=== PATIENT | female | born 1970 | race Caucasian/White ===

== ENCOUNTER 2025-04-28 21:36 | Emergency (ER) | payer SELFPAY ==
[~2025-04-28] VITALS: Ht 165.1 cm; Wt 61.0 kg
[2025-04-28 21:39] VITALS: O2SAT 98
[2025-04-28 22:34] VITALS: TEMP 36.9
[2025-04-28 23:20] LABS: HEMATOCRIT. 27.3 % (36.0-48.0); HEMOGLOBIN. 9.0 g/dL (12.0-16.0); MEAN PLATELET VOLUME 8.7 fl (7.4-10.4); PLATELET 161 x1000/uL (130-400); RED BLOOD CELL COUNT 3.28 mill/uL (4.2-5.4); RED CELL DISTRIBUTION WIDTH 15.3 % (11.6-14.6)
[2025-04-28 23:32] LABS: INR 1.1
[2025-04-28 23:35] LABS: CREATININE 0.5 mg/dL (0.6-1.0); UREA NITROGEN BLOOD 14 mg/dL (9-23)
[2025-04-29 00:25] VITALS: BP 96/62; PULSE 95; RESP 16; O2SAT 97
[2025-04-29 05:47] LABS: LYMPHOCYTES % MANUAL 10.0 % (20.0-60.0); MONOCYTES % MANUAL 5.0 % (2.0-8.0); NEUTROPHILS % MANUAL 85.0 % (45.0-75.0); PLATELET ESTIMATE NORMAL
[2025-05-06] MEDS ORDERED: FOLI20CA PO (09:59)
[2025-05-06] MEDS ORDERED: METF-1150 PO (10:06)
[2025-05-06] MEDS ORDERED: CALC-940 PO (10:06)
[2025-05-06] MEDS ORDERED: LOPE2CAP PO (10:06)
[2025-05-06] MEDS ORDERED: TOPUD MT (10:06)
[2025-05-06] MEDS ORDERED: TRAM100C3 PO (10:06)
[2025-05-06] MEDS ORDERED: PREG100C PO (10:06)
[2025-05-06] MEDS ORDERED: ONDA-241 PO (10:06)
[2025-05-06] MEDS ORDERED: MIDO5TAB4 PO (17:18)
[2025-05-06] MEDS ORDERED: AMOX1TAB15 PO (17:18)
== END 2025-04-29 00:44 | disposition home or self-care (01) ==
LOC: ER 21:36
DX: M79.81 Nontraumatic hematoma of soft tissue (principal); D64.9 Anemia, unspecified; E11.9 Type 2 diabetes mellitus without complications; F19.90 Other psychoactive substance use, unspecified, uncomplicated; Z79.899 Other long term (current) drug therapy; Z98.890 Other specified postprocedural states
CPT/HCPCS: 36415; 80048; 85025; 86850; 86900; 99284

== ENCOUNTER 2025-06-08 11:37 | Inpatient (IN) | payer MEDICAID ==
[~2025-06-08] VITALS: Ht 154.9 cm; Wt 63.5 kg
[~2025-06-08 11:37] MED LIST: AMOX1TAB15 PO; CALC-940 PO; FOLI20CA PO; LOPE2CAP PO; METF-1150 PO; MIDO5TAB4 PO; ONDA-241 PO; PREG100C PO; TOPUD MT; TRAM100C3 PO
[2025-06-08 11:38] VITALS: O2SAT 96
[2025-06-08] MEDS: LEVETIRACETAM 500MG PREMIX 100 ML IV ONE ×2 (12:00→13:00)
[2025-06-08] MEDS: LORAZEPAM 2MG/ML UD SYRINGE IV NR (13:01)
[2025-06-08 13:27] LABS: BASOPHILS % 0.3 % (0.0-2.0); EOSINOPHILS % 0.1 % (0.0-5.0); HEMATOCRIT. 22.1 % (36.0-48.0); LYMPHOCYTES % 10.9 % (20.0-50.0); MEAN PLATELET VOLUME 9.1 fl (7.4-10.4); MONOCYTES % 11.6 % (2.0-8.0); NEUTROPHILS % 77.1 % (40.0-76.0); PLATELET 55 x1000/uL (130-400); RED BLOOD CELL COUNT 2.28 mill/uL (4.2-5.4); RED CELL DISTRIBUTION WIDTH 18.0 % (11.6-14.6)
[2025-06-08 13:34] LABS: CREATININE 0.5 mg/dL (0.6-1.0); UREA NITROGEN BLOOD 11 mg/dL (9-23)
[2025-06-08] MEDS: SODIUM CHLORIDE 0.9% (SEPSIS BOLUS) IV ONE (13:34)
[2025-06-08 13:36] LABS: ASPARTATE AMINOTRANSFERASE 16 IU/L (<34); BILIRUBIN TOTAL 0.6 mg/dL (0.1-1.0); PROTEIN TOTAL 5.9 g/dL (6.0-8.3)
[2025-06-08 13:50] LABS: TROPONIN I HIGH SENSITIVITY 4 ng/L (3.0-34)
[2025-06-08 13:51] LABS: HEMOGLOBIN. 6.6 g/dL (12.0-16.0)
[2025-06-08] MEDS: PIPERACILLIN/TAZO 3.375G/50ML 50 ML IV STA (14:35)
[2025-06-08] MEDS: VANCOMYCIN 1.5GM PMX (XELLIA) 300 ML IV SCH (16:07)
[2025-06-08] MEDS ORDERED: DEXTROSE 50% WATER 50ML SYRINGE IV PRN (17:45)
[2025-06-08] MEDS ORDERED: ACETAMINOPHEN 325MG TABLET PO PRN (18:00)
[2025-06-08] MEDS ORDERED: MIDODRINE HCL 5MG TABLET PO PRN (18:00)
[2025-06-08] MEDS ORDERED: GUAIFENESIN 200MG/10ML SUGAR FREE UDC PO PRN (18:00)
[2025-06-08] MEDS ORDERED: CLONIDINE 0.1MG TABLET PO PRN (18:00)
[2025-06-08] MEDS ORDERED: MAGNESIUM/ALUMINUM HYDROXIDE/SIMETHICONE 30ML UDC PO PRN (18:00)
[2025-06-08] MEDS ORDERED: DOCUSATE SODIUM 100MG CAPSULE PO PRN (18:00)
[2025-06-08] MEDS ORDERED: IPRATROPIUM/ALBUTEROL 0.5-3(2.5)MG/3ML NEB HHN PRN (18:00)
[2025-06-08] MEDS: INSULIN LISPRO 100 UNITS/ML SUBCUT SCH (18:20)
[2025-06-08] MEDS ORDERED: LORAZEPAM 2MG/ML UD SYRINGE IV PRN (18:30)
[2025-06-08] MEDS: MORPHINE SULFATE 2 MG/ML INJ (NOT FOR IM USE) IV PRN (18:38)
[2025-06-08] MEDS: ONDANSETRON HCL 4MG/2ML INJ IV PRN (18:38)
[2025-06-08 19:08] LABS: PHOSPHORUS 2.4 mg/dL (2.5-4.9)
[2025-06-08] MEDS: DEXT 5%/LACTATED RINGERS 1,000 ML IV SCH (19:08)
[2025-06-08] MEDS ORDERED: LEVETIRACETAM 1,000MG in NACL 100ML PREMIX IV SCH (21:00)
[2025-06-08] MEDS: BLOOD SUGAR DIAGNOSTIC STRIP TEST SCH (21:00)
[2025-06-08] MEDS: ACETAMINOPHEN 325MG TABLET PO PRN (21:10)
[2025-06-08 21:44] LABS: CLARITY URINE CLEAR (CLEAR); COLOR URINE YELLOW (YELLOW); GLUCOSE URINE NEGATIVE (NEGATIVE); KETONES URINE 2+ (NEGATIVE); LEUKOCYTE ESTERASE URINE NEGATIVE (NEGATIVE); NITRITE URINE NEGATIVE (NEGATIVE); OCCULT BLOOD URINE NEGATIVE (NEGATIVE); PH URINE 6.0 (4.5-8.0); PROTEIN URINE TRACE (NEGATIVE); SPECIFIC GRAVITY URINE 1.012 (1.005-1.030); UROBILINOGEN URINE 0.2 E.U./dL (0.2-1.0)
[2025-06-08 21:54] LABS: *AMPHETAMINES SCREEN URINE NEGATIVE (NEGATIVE); *BENZODIAZEPINES SCREEN URINE NEGATIVE (NEGATIVE)
[2025-06-08 21:55] LABS: *BARBITURATES SCREEN URINE NEGATIVE (NEGATIVE); *COCAINE SCREEN URINE NEGATIVE (NEGATIVE); CANNABINOID URINE SCREEN NEGATIVE (NEGATIVE); ECSTASY MDMA SCREEN URINE NEGATIVE (NEGATIVE); METHADONE URINE SCREEN NEGATIVE (NEGATIVE); OPIATES URINE SCREEN PRESUMPTIVE POSITIVE (NEGATIVE); PHENCYCLIDINE URINE SCREEN NEGATIVE (NEGATIVE)
[2025-06-08 22:48] LABS: BACTERIA URINE TRACE; RBC URINE 0-2 /hpf (0-2); SQUAMOUS EPITHELIAL CELL URINE FEW /lpf (RARE/1+); WBC URINE 0-2 /hpf (0-2)
[2025-06-08 23:54] LABS: CREATINE KINASE MB FRACTION < 0.5 ng/mL (0.5-3.6); TROPONIN I HIGH SENSITIVITY 7 ng/L (3.0-34)
[2025-06-08] MEDS: LEVETIRACETAM 1000MG PREMIX 100 ML IV SCH (23:57)
[2025-06-08] MEDS: PIPERACILLIN/TAZO 3.375G/50ML 50 ML IV SCH (23:58)
[2025-06-09] VITALS (9 sets, daily range): BP systolic 96–124; BP diastolic 54–63; PULSE 106–113; RESP 18–20; TEMP 36.44736–37.7; O2SAT 97–100
[2025-06-09] MEDS: VANCOMYCIN 750MG PREMIX 150 ML IV SCH (00:53)
[2025-06-09] MEDS ORDERED: OLAN5TAB39 PO (06:01)
[2025-06-09] MEDS ORDERED: ATOR20TA65 PO (06:01)
[2025-06-09] MEDS ORDERED: MIRT-89 PO (06:01)
[2025-06-09] MEDS ORDERED: FOLI0.4T6 PO (06:01)
[2025-06-09 10:18] LABS: BG BASE EXCESS -7.0 mmol/L (-2.0-3.0); BG CARBOXYHEMOGLOBIN 1.7 % (0.5-1.5); BG DEOXYHEMOGLOBIN 2.9 % (0.0-5.0); BG FRACTION INSPIRED OXYGEN 21; BG HCO3 ACT 16.7 mmol/L (21.0-28.0); BG METHEMOGLOBIN 0.2 % (0.5-1.5); BG OXYGEN SATURATION 97.0 % (94.0-98.0); BG OXYHEMOGLOBIN 95.2 % (94.0-98.0); BG PCO2 26.9 mmHg (32.0-45.0); BG PH 7.412 (7.350-7.450); BG PO2 89.5 mmHg (83.0-108.0); BG SAMPLE SITE RIGHT RADIAL; BG TOTAL HEMOGLOBIN 7.4 g/dL (12.0-16.0); BG VENT MODE ROOM AIR
[2025-06-09] MEDS: PANTOPRAZOLE SODIUM 40 MG/VIAL IV SCH (11:00)
[2025-06-09] MEDS: VANCOMYCIN 750MG PMX (XELLIA) 150 ML IV SCH (11:01)
[2025-06-09] MEDS: HYDROCODONE/ACETAMINOPHEN 5/325MG TABLET PO PRN (11:09)
[2025-06-09] MEDS: MULTIVITAMINS,THER W-MINERALS TABLET PO SCH (11:10)
[2025-06-09] MEDS: FERROUS SULFATE 325MG TABLET PO SCH (11:10)
[2025-06-09 11:50] LABS: BASOPHILS % 0.3 % (0.0-2.0); EOSINOPHILS % 0.1 % (0.0-5.0); LYMPHOCYTES % 7.6 % (20.0-50.0); MEAN PLATELET VOLUME 8.9 fl (7.4-10.4); MONOCYTES % 12.2 % (2.0-8.0); NEUTROPHILS % 79.8 % (40.0-76.0); RED BLOOD CELL COUNT 2.41 mill/uL (4.2-5.4); RED CELL DISTRIBUTION WIDTH 16.1 % (11.6-14.6)
[2025-06-09 11:57] LABS: CREATINE KINASE MB FRACTION < 0.5 ng/mL (0.5-3.6); CREATININE 0.5 mg/dL (0.6-1.0); TRIGLYCERIDE 218 mg/dL (0-150); UREA NITROGEN BLOOD 8 mg/dL (9-23)
[2025-06-09 11:58] LABS: LDL CHOLESTEROL 32 mg/dL (5-100); TROPONIN I HIGH SENSITIVITY 5 ng/L (3.0-34)
[2025-06-09 11:59] LABS: ASPARTATE AMINOTRANSFERASE 9 IU/L (<34); BILIRUBIN DIRECT 0.2 mg/dL (<=3.0); BILIRUBIN TOTAL 0.6 mg/dL (0.1-1.0); PROTEIN TOTAL 5.4 g/dL (6.0-8.3)
[2025-06-09 12:01] LABS: HEMATOCRIT. 21.2 % (36.0-48.0); HEMOGLOBIN. 6.9 g/dL (12.0-16.0); T4 FREE 1.00 ng/dL (0.89-1.76)
[2025-06-09] MEDS: MAGNESIUM 4 G PREMIX 100 ML IV NR (17:40)
[2025-06-09] MEDS: POTASSIUM CHLORIDE 40 MEQ in SODIUM CHLORIDE 0.45% 1,000 ML IV SCH (21:28)
[2025-06-10] VITALS: BP 100/58; PULSE 78; RESP 18; TEMP 36.6; O2SAT 97
[2025-06-10 04:00] VITALS: BP 104/65; PULSE 104; RESP 18; TEMP 35.9; O2SAT 97
[2025-06-10 08:00] VITALS: BP 121/63; PULSE 100; RESP 15; TEMP 36.3; O2SAT 96
[2025-06-10 08:58] LABS: PLATELET 55 x1000/uL (130-400); RED BLOOD CELL COUNT 3.09 mill/uL (4.2-5.4); RED CELL DISTRIBUTION WIDTH 15.7 % (11.6-14.6)
[2025-06-10 09:16] LABS: CREATININE 0.4 mg/dL (0.6-1.0); UREA NITROGEN BLOOD 5 mg/dL (9-23)
[2025-06-10 09:18] LABS: PHOSPHORUS 1.4 mg/dL (2.5-4.9)
[2025-06-10 20:19] LABS: PLATELET 50 x1000/uL (130-400)
== END 2025-06-10 11:00 | disposition home or self-care (01) | DRG 41 ==
LOC: ER 11:37 → EDBEDREQTM 16:04 → EDBEDREQ 16:04 → ENRESERV 16:16 → 7WST 21:59
PROVIDERS: ADMIT Internal Medicine; ATTEND Internal Medicine
PROC: 30233N1 Transfusion of Nonautologous Red Blood Cells into Peripheral Vein, Percutaneous Approach (ICD-10-PCS; principal; 2025-06-08)
DX: C79.31 Secondary malignant neoplasm of brain (principal); D61.818 Other pancytopenia; C78.02 Secondary malignant neoplasm of left lung; C78.01 Secondary malignant neoplasm of right lung; J18.9 Pneumonia, unspecified organism; G40.901 Epilepsy, unspecified, not intractable, with status epilepticus; G96.00 Cerebrospinal fluid leak, unspecified; C50.912 Malignant neoplasm of unspecified site of left female breast; Z85.3 Personal history of malignant neoplasm of breast; E11.9 Type 2 diabetes mellitus without complications; R74.8 Abnormal levels of other serum enzymes; Z74.01 Bed confinement status; Z86.73 Personal history of transient ischemic attack (TIA), and cerebral infarction without residual deficits; Z92.21 Personal history of antineoplastic chemotherapy; Z92.3 Personal history of irradiation; D63.0 Anemia in neoplastic disease
CPT/HCPCS: 36415; 36600; 71045; 80048; 80053; 80061; 80076; 80202; 80305; 81003; 82140; 82375; 82550; 82553; 82805; 82962; 83036; 83605; 83735; 83880; 84100; 84145; 84439; 84443; 84484; 85014; 85018; 85025; 85027; 85379; 86850; 86870; 86900; 86920; 92610; 93005; 93970; 94640; 97166; 99291; J1815; J1953; J2060; J2270; J2405; J2470; J2543; J3373; J3475; J3480; J7030; P9016